=== PATIENT | male | born 1965 | race Caucasian/White ===

== ENCOUNTER 2020-12-29 22:51 | Observation (INO) ==
--- NOTE | 2020-12-29 23:27 | ERNOTE ---
Medical Problem HPI - Narrative Date of Service: 12/29/20 - General Chief Complaint: General Assessment Time Seen by Provider: 12/29/20 23:24 Source: patient Exam Limitations: no limitations - Immun/Allergies/Home Medications Immunizations: IMMUNIZATION HX Immunizations Up to Date Yes Immunizations Comment Covid (2) History of Influenza Vaccine Yes Hx Pneumococcal Vaccination No Allergies/Adverse Reactions: Allergies azithromycin Allergy (Verified 12/29/20 23:14) rash Penicillins Allergy (Verified 12/29/20 23:14) swelling/swollen throat diazepam [From Valium] Adverse Reaction (Verified 12/29/20 23:14) "one edge" Home Medications: HOME MEDICATIONS cholecalciferol (vitamin D3) 50 mcg (2,000 unit) capsule 2,000 unit PO DAILY 03/19/18 [Last Taken 06/15/18] Triamcinolone Acetonide 1 applic TOPICAL BID PRN 06/17/18 [Last Taken Unknown] cetirizine 10 mg tablet 10 mg PO DAILY PRN #90 tab 08/03/18 [Last Taken Unknown] gabapentin 300 mg capsule 300 mg PO TID #90 cap 08/03/18 [Last Taken Unknown] ropinirole 4 mg tablet 4 mg PO HS #90 tab 08/03/18 [Last Taken Unknown] tizanidine 4 mg tablet 12 mg PO HS #90 tab 08/03/18 [Last Taken Unknown] furosemide 40 mg tablet 80 mg PO DAILY tab 09/07/18 [Last Taken Unknown] Erythromycin Base [Erythromycin Ophthalmic Ointment] 1 appl OP QID #1 tube 10/28/20 [Last Taken Unknown] Lisinopril [Prinivil] 40 mg PO DAILY 12/29/20 [Last Taken Unknown] - History of Present History Narrative: Patient comes to the ER because he accidentally took his 's medication tonight. He called here, was directed to poison control and poison control sent him in because his 's medication includes 20 mg of glipizide but this patient is not diabetic. He was directed here for additional monitoring. He states he feels fine. Review of Systems - Review of Systems Constitutional: Present: no symptoms reported ENT: Present: no symptoms reported Respiratory: Present: no symptoms reported Cardiology: Present: no symptoms reported Gastrointestinal/Abdominal: Present: no symptoms reported Musculoskeletal: Present: no symptoms reported Skin: Present: no symptoms reported Medical History (Last Reviewed 12/29/20 @ 23:26 by Kelley Anand MD) COVID-19 vaccine series completed (Acute) Meralgia paresthetica of left side (Chronic) Pulmonary hypertension (Chronic) Chest pain (Acute) GI bleeding (Resolved) Left sided abdominal pain (Acute) Hearing loss (Chronic) Lymphedema of lower extremity (Chronic) Restless leg (Chronic) Lower extremity edema (Chronic) Right leg pain (Chronic) Mass of right knee (Chronic) behind knee Hypertension (Chronic) Lives with spouse Cellulitis Congenital solitary kidney Constipation Diarrhea Dyspnea Hypertension Leg pain Lymphedema Morbid obesity Neoplasm of uncertain behavior of skin Numbness in feet TRAVON (obstructive sleep apnea) CPAP Palpitations Varicose veins of both legs with edema Surgical History: Surgical History (Last Reviewed 12/29/20 @ 23:26 by Kelley Anand MD) H/O tooth extraction Onset Date: Unknown History of colonoscopy Onset Date: 06/17/18 06/17/18 [place]-tubulovillous adenoma. Recheck 3 yrs.; 06/23/18 at the [facility] History of varicose vein ligation and stripping Onset Date: Unknown left leg-greater vein. Family History: Family History (Last Reviewed 12/29/20 @ 23:26 by Kelley Anand MD) Mother , age 53-DM DMII (diabetes mellitus, type 2) Father , age 50's-throat cancer Cancer throat Social History: (Last Reviewed 12/29/20 @ 23:26 by Kelley Anand MD) Social History: Marital status: lives independently: Yes household members: spouse number of children: 1 current occupational status: disabled Highest level of school completed/degree received: Associate degree: occupat Service: Yes branch: [employer] Tobacco: Smoking Status: Never smoker Alcohol: alcohol intake: never Substance Use: substance use type: does not use Dietary Habits: caffeine: Yes caffeine comment: current, some days Type: carbonated beverages Exercise: Physical activity type: none Personal Safety: victim of physical abuse: No victim of emotional abuse: No Physical Exam - Physical Exam General Appearance: Present: wd/wn - morbidly obese, alert Head Exam: Present: normal inspection Eye Exam: Normal inspection: bilateral Ears, Nose, Throat: Present: normal ENT inspection Neck: Present: normal inspection, supple Respiratory: Present: no respiratory distress, lungs clear Cardiovascular/Chest: Present: regular rate, rhythm Gastrointestinal/Abdominal: Present: normal bowel sounds, soft Extremity Exam: Present: normal inspection Neurological Exam: Present: alert Skin Exam: Present: normal color Progress - Results and Orders Patient's Lab Results:: I have reviewed the patient's lab results. Results and Orders: Laboratory Tests 12/29/20 12/29/20 12/29/20 23:30 23:50 23:50 WBC 7.6 Hgb 15.7 Hct 48.2 Plt Count 234 Sodium 140 Potassium 4.1 Chloride 103 BUN 21 Creatinine 1.29 Random Glucose 67 L Calcium Adj for Albumin 8.6 Total Bilirubin 1.3 H AST 30 ALT 37 Total Protein 7.4 Albumin 4.0 Urine Protein Negative Urine Glucose (UA) Negative Urine Ketones Negative Urine Blood Negative Urine Nitrate Negative Urine Bilirubin Negative Urine Urobilinogen Normal Ur Leukocyte Esterase Negative Urine RBC None seen Urine WBC None seen Urine Culture Comments No culture indicated Laboratory Tests 12/29/20 23:50 Hemoglobin A1c 5.9 H - Vital Signs Patient's Vital Signs:: I have reviewed the patient's vital signs. Vital Signs: Vital Signs 12/29/20 22:52 Temperature 37.1 C Pulse Rate 66 Respiratory Rate 20 Blood Pressure 181/86 H O2 Sat by Pulse Oximetry 98 - EKG EKG #1 EKG: NSR, RBBB, other - There is presence of from right bundle branch block, incomplete, left anterior fascicular block. There are Q waves present in aVR, V1. These are new since patient's previous EKG from 2018. Nothing acute however. I would recommend following up on these EKG changes as an outpatient - Progress/Reassessment Chief Complaint: General Assessment Progress:: Unchanged Progress Note-Subjective: 12/30/20 00:41 This nondiabetic patient ingested 20 mg of glipizide accidentally. Poison control recommends 24-hour monitoring. He is not experiencing any symptoms except for a mild headache upon arrival. He is given food and drink upon arrival. Presenting blood sugar is within normal limits. Throughout his course of stay here in the ED continued to be within normal limits. He does have some new findings on his EKG when compared to 2018 Which are not associated with his glipizide ingestion. Since he is not having any symptoms, I would recommend outpatient follow-up with cardiology to evaluate morbid obesity, hypertension associated with EKG findings of incomplete right bundle branch block, left anterior fascicular block and Q waves which could represent an old [place]. I do believe he would benefit from cardiology evaluation due to EKG abnormalities although this does not need to be done while here under monitoring for the glipizide ingestion. Departure Clinical Impression: Drug ingestion, accidental, Abnormal finding on EKG - Departure Disposition: Still a patient Condition: Good Referrals: Nisa Kulkarni, [Primary Care Provider] -
[2020-12-29 23:48] LABS: Urine Bilirubin Negative (NEGATIVE); Urine Blood Negative /ul (NEGATIVE); Urine Ketone Negative (NEGATIVE); Urine Nitrite Negative (NEGATIVE); Urine Protein Negative (NEGATIVE); Urine Specific Gravity <=1.005 SP.GR. (1.005-1.030); Urine Urobilinogen Normal (NORMAL)
[2020-12-29 23:55] LABS: Hematocrit 48.2 % (42.0-52.0); Hemoglobin 15.7 gm/dL (13.5-18.0); Mean Cell Volume 91.8 fl (78-100); Mean Corpuscular Hemoglobin 29.9 pg (27-31); Mean Corpuscular Hgb Conc 32.6 g/dl (32-36); Mean Platelet Volume 11.7 fl (8-11.3); Neutrophil # 3.6 K/mm3 (1.3-6.0); Neutrophil % 47.9 % (42-75.0); Platelet Count 234 K/mm3 (150-450); Red Blood Count 5.25 M/mm3 (4.7-6.0); Red Cell Distribution Width 14.6 % (11.5-14.0); White Blood Count 7.6 K/mm3 (4.0-10.5)
[2020-12-30] LABS: Urine Appearance Clear (CLEAR); Urine Bacteria None Seen; Urine Color Yellow; Urine RBC None Seen /hpf (0-5); Urine WBC None Seen /hpf (0-5)
[2020-12-30 00:22] LABS: Anion Gap 20.1 mmol/L (6.8-13.8); Bilirubin, Total 1.3 mg/dL (0.0-1.1); Potassium 4.1 mmol/L (3.4-4.6); Total Protein 7.4 gm/dL (6.2-8.2)
[2020-12-30 00:28] LABS: BUN/Creatinine Ratio 16.3 (9.0-21.6); Ca. Corrected For Albumin 8.6 mg/dL (8.4-10.2); Calcium * 8.9 mg/dL (7.9-10.9)
[2020-12-30 00:42] LABS: Hemoglobin A1C 5.9 % (3.80-5.60)
[2020-12-30] MEDS ORDERED: DEXTROSE 50%-WATER 50 ML SYRG IV ONE (01:09)
[2020-12-30] MEDS ORDERED: rOPINIRole HCL 1 MG TABLET PO ONE (03:00)
[2020-12-30] MEDS ORDERED: DEXTROSE 50%-WATER 50 ML SYRG ONE (04:37)
[2020-12-30] MEDS ORDERED: DEXTROSE 50%-WATER 50 ML SYRG IV STA (04:40)
[2020-12-30] MEDS ORDERED: DEXTROSE 4 GM/TAB BTL PO STA ×2 (05:40→06:33)
[2020-12-30] MEDS ORDERED: DEXTROSE 4 GM/TAB BTL ONE (05:43)
[2020-12-30] MEDS ORDERED: FUROSEMIDE 40 MG TABLET PO SCH (09:00)
[2020-12-30] MEDS ORDERED: GABAPENTIN 300 MG CAPSULE PO SCH ×3 (09:00→21:00)
[2020-12-30] MEDS ORDERED: FUROSEMIDE 80 MG TABLET PO SCH (09:00)
[2020-12-30] MEDS ORDERED: LISINOPRIL 40 MG TABLET PO SCH (09:00)
[2020-12-30] MEDS ORDERED: LISINOPRIL 10 MG TABLET PO SCH (09:00)
--- NOTE | 2020-12-30 18:25 | HPDIS ---
Chief Complaint - Chief Complaint Date of Service: 12/30/20 Time of Service: 18:12 Chief Complaint: Hypoglycemia History of Present Illness: 55-year-old male with history of hypertension, sleep apnea, morbid obesity, neuropathy in his feet, restless leg syndrome presented to the ER after accidentally ingesting his 's glipizide. He was found to hypoglycemic and was diaphoretic. Sugar in the ER was 67. Patient was transferred to the floor for 24-hour monitoring of his blood sugars recommendation of poison control. Upon the floor his sugars were checked every hour it was administered an amp D5 once as well as orange juice and glucose tablets. His sugars stabilized around 8 this morning and has been within normal limits since. He was seen this morning and was sleeping comfortably with CPAP. He had no concerns at that time. His vital signs are stable and he felt well. Reexamination this evening shows his sugars have been within normal limits and has not had any glucose administered aside from his regular meals. Patient is fine to go home and its roughly 20 hours post ingestion and is with been without complication for last 10 hours. I think this is appropriate we will likely discharge him later this evening. Medical History (Last Reviewed 12/30/20 @ 02:07 by Poonam Noel RN) COVID-19 vaccine series completed (Acute) Meralgia paresthetica of left side (Chronic) Pulmonary hypertension (Chronic) Chest pain (Acute) GI bleeding (Resolved) Left sided abdominal pain (Acute) Hearing loss (Chronic) Lymphedema of lower extremity (Chronic) Restless leg (Chronic) Lower extremity edema (Chronic) Right leg pain (Chronic) Mass of right knee (Chronic) behind knee Hypertension (Chronic) Lives with spouse Cellulitis Congenital solitary kidney Constipation Diarrhea Dyspnea Hypertension Leg pain Lymphedema Morbid obesity Neoplasm of uncertain behavior of skin Numbness in feet TRAVON (obstructive sleep apnea) CPAP Palpitations Varicose veins of both legs with edema Surgical History: Surgical History (Last Reviewed 12/30/20 @ 02:07 by Poonam Noel RN) H/O tooth extraction Onset Date: Unknown History of colonoscopy Onset Date: 06/17/18 06/17/18 [place]-tubulovillous adenoma. Recheck 3 yrs.; 06/23/18 at the [facility] History of varicose vein ligation and stripping Onset Date: Unknown left leg-greater vein. Family History: Family History (Last Reviewed 12/30/20 @ 02:07 by Poonam Noel RN) Mother , age 53-DM DMII (diabetes mellitus, type 2) Father , age 50's-throat cancer Cancer throat Social History: (Last Updated 12/30/20 @ 02:08 by Poonam Noel RN) Social History: Marital status: lives independently: Yes household members: spouse number of children: 4 number of grandchildren: 11 current occupational status: disabled Highest level of school completed/degree received: Associate degree: occupat Service: Yes branch: [employer] Tobacco: Smoking Status: Never smoker Alcohol: alcohol intake: never Substance Use: substance use type: does not use Dietary Habits: caffeine: Yes caffeine comment: current, some days Type: carbonated beverages Exercise: Physical activity type: none Personal Safety: victim of physical abuse: No victim of emotional abuse: No Review Of Systems (GEN) - Review of Systems Generalized/Overall Review: Present: No Symptoms Reported EENTM: Present: No Symptoms Reported Respiratory: Present: No Symptoms Reported Cardiac: Present: No Symptoms Reported Abdominal: Present: No Symptoms Reported Genitourinary: Present: No Symptoms Reported Musculoskeletal: Present: No Symptoms Reported Neurological: Present: No Symptoms Reported Skin: Present: No Symptoms Reported Endocrine: Present: No Symptoms Reported Additional Comments: As stated in the HPI Immunizations: IMMUNIZATION HX Immunizations Up to Date Yes Immunizations Comment Covid (2) History of Influenza Vaccine Yes Hx Pneumococcal Vaccination No Allergies/Adverse Reactions: Allergies Allergy/AdvReac Type Severity Reaction Status Date / Time azithromycin Allergy rash Verified 12/29/20 23:14 Penicillins Allergy swelling/swollen Verified 12/29/20 23:14 throat diazepam [From Valium] AdvReac "one edge" Verified 12/29/20 23:14 Home Medications: HOME MEDICATIONS Triamcinolone Acetonide 1 applic TOPICAL BID PRN 06/17/18 [Last Taken Unknown] cetirizine 10 mg tablet 10 mg PO DAILY PRN #90 tab 08/03/18 [Last Taken Unknown] gabapentin 300 mg capsule 300 mg PO TID #90 cap 08/03/18 [Last Taken 12/29/20 12:00] ropinirole 4 mg tablet 4 mg PO HS #90 tab 08/03/18 [Last Taken Unknown] tizanidine 4 mg tablet 12 mg PO HS #90 tab 08/03/18 [Last Taken Unknown] furosemide 40 mg tablet 80 mg PO DAILY tab 09/07/18 [Last Taken 12/29/20 08:00] Lisinopril [Prinivil] 40 mg PO DAILY 12/29/20 [Last Taken 12/29/20 08:00] Erythromycin Base [Erythromycin Ophthalmic Ointment] 1 appl OP QID PRN 12/30/20 [Last Taken Unknown] Exam - Exam Vital Signs: Vital Signs - Last Taken Temp 36.7 C 12/30/20 14:58 Pulse 55 L 12/30/20 14:58 Resp 19 12/30/20 14:58 BP 155/80 H 12/30/20 14:58 Pulse Ox 100 12/30/20 14:58 Constitutional: Present: Alert, Oriented x3, Morbidly obese ENT Exam: Present: hearing grossly normal Eye Exam: bilateral eye: normal inspection, EOMI Respiratory: Present: lungs clear, normal breath sounds Cardiovascular/Chest: Present: regular rate, rhythm, no murmur, other - Distant heart sounds due to body habitus Skin Exam: Present: normal color, warm/dry Appearance: Present: appropriate appearance, appropriate insight - Low hello Eye contact: Present: cooperative, good eye contact Thoughts: Present: normal thought pattern, normal mood /affect Diagnostic Studies: Abnormal Lab Results 12/29/20 12/29/20 12/29/20 Range/Units 23:50 23:50 23:50 RDW 14.6 H (11.5-14.0) % MPV 11.7 H (8-11.3) fl Monocytes % 10.3 H (0.0-9) % Carbon Dioxide 21.0 L (24-32.6) mmol/L Anion Gap 20.1 H (6.8-13.8) mmol/L Random Glucose 67 L (70-110) mg/dL Hemoglobin A1c 5.9 H (3.80-5.60) % Total Bilirubin 1.3 H (0.0-1.1) mg/dL Laboratory Results WBC 7.6 K/mm3 (4.0-10.5) 12/29/20 23:50 RBC 5.25 M/mm3 (4.7-6.0) 12/29/20 23:50 Hgb 15.7 gm/dL (13.5-18.0) 12/29/20 23:50 Hct 48.2 % (42.0-52.0) 12/29/20 23:50 MCV 91.8 fl (78-100) 12/29/20 23:50 MCH 29.9 pg (27-31) 12/29/20 23:50 MCHC 32.6 g/dl (32-36) 12/29/20 23:50 RDW 14.6 % (11.5-14.0) H 12/29/20 23:50 Plt Count 234 K/mm3 (150-450) 12/29/20 23:50 MPV 11.7 fl (8-11.3) H 12/29/20 23:50 Immature Gran % (Auto) 0.40 % (0.001-0.429) 12/29/20 23:50 Immature Gran # (Auto) 0.03 K/mm3 (0.000-0.0310) 12/29/20 23:50 Neutrophils % 47.9 % (42-75.0) 12/29/20 23:50 Lymphocytes % 38.3 % (20-51) 12/29/20 23:50 Monocytes % 10.3 % (0.0-9) H 12/29/20 23:50 Eosinophils % 2.4 % (0.0-3.0) 12/29/20 23:50 Basophils % 0.7 % (0.0-1.0) 12/29/20 23:50 Nucleated RBC % 0.0 k/mm3 (0-1) 12/29/20 23:50 Neutrophils # 3.6 K/mm3 (1.3-6.0) 12/29/20 23:50 Lymphocytes # 2.89 k/mm3 (1.5-3.5) 12/29/20 23:50 Monocytes # 0.8 k/mm3 (0.0-1.0) 12/29/20 23:50 Eosinophils # 0.2 k/mm3 (0.0-0.7) 12/29/20 23:50 Absolute Basophils 0.1 k/mm3 (0.0-0.1) 12/29/20 23:50 Sodium 140 mmol/L (132-142) 12/29/20 23:50 Plasma Sodium 139 mmol/L (130-142) 12/29/20 23:50 Potassium 4.1 mmol/L (3.4-4.6) 12/29/20 23:50 Chloride 103 mmol/L (97-106) 12/29/20 23:50 Carbon Dioxide 21.0 mmol/L (24-32.6) L 12/29/20 23:50 Anion Gap 20.1 mmol/L (6.8-13.8) H 12/29/20 23:50 BUN 21 mg/dL (6-23) 12/29/20 23:50 Creatinine 1.29 mg/dL (0.4-1.4) 12/29/20 23:50 Est GFR (Non-Af Amer) 61 mL/min (60-130) D 12/29/20 23:50 BUN/Creatinine Ratio 16.3 (9.0-21.6) 12/29/20 23:50 Random Glucose 67 mg/dL (70-110) L 12/29/20 23:50 Mean Blood Glucose 123 mg/dL 12/29/20 23:50 Hemoglobin A1c 5.9 % (3.80-5.60) H 12/29/20 23:50 Calcium 8.9 mg/dL (7.9-10.9) 12/29/20 23:50 Calcium Adj for Albumin 8.6 mg/dL (8.4-10.2) 12/29/20 23:50 Total Bilirubin 1.3 mg/dL (0.0-1.1) H 12/29/20 23:50 AST 30 U/L (0-48) 12/29/20 23:50 ALT 37 U/L (19-67) 12/29/20 23:50 Alkaline Phosphatase 76 U/L (50-170) 12/29/20 23:50 Total Protein 7.4 gm/dL (6.2-8.2) 12/29/20 23:50 Albumin 4.0 gm/dl (3.4-5.0) 12/29/20 23:50 Urine Color Yellow 12/29/20 23:30 Urine Appearance Clear (CLEAR) 12/29/20 23:30 Urine pH 6.0 pH (5.0-7.0) 12/29/20 23:30 Ur Specific [place] <=1.005 SP.GR. (1.005-1.030) 12/29/20 23:30 Urine Protein Negative mg/dL (NEGATIVE) 12/29/20: Urine Glucose (UA) Negative mg/dL (NEGATIVE) 12/29/20: Urine Ketones Negative mg/dL (NEGATIVE) 12/29/20 Urine Blood Negative /ul (NEGATIVE) 12/29/20 Urine Nitrate Negative (NEGATIVE) 12/29/20: Urine Bilirubin Negative mg/dl (NEGATIVE) 12/29/20: Urine Urobilinogen Normal EU/dl (NORMAL) 12/29/20 Ur Leukocyte Esterase Negative /ul (NEGATIVE) 12/29/20 Urine RBC None seen /hpf (0-5) 12/29/20 Urine WBC None seen /hpf (0-5) 12/29/20 Ur Epithelial Cells 0-5 /hpf (0-5) 12/29/20 Urine Bacteria None seen (NONE) 12/29/20 Urine Culture Comments No culture indicated 12/29/20 SARS-CoV-2 (PCR) Not detected (NotDetected) 12/29/20 Assessment/Plan - Assessment/Plan (1) Hypoglycemia Assessment: 55-year-old male with history of hypertension, sleep apnea, morbid obesity, neuropathy in his feet, restless leg syndrome presented to the ER after accidentally ingesting his 's glipizide. He was found to hypoglycemic and was diaphoretic. Sugar in the ER was 67. Patient was transferred to the floor for 24-hour monitoring of his blood sugars recommendation of poison control. Upon the floor his sugars were checked every hour it was administered an amp D5 once as well as orange juice and glucose tablets. His sugars stabilized around 8 this morning and has been within normal limits since. He was seen this morning and was sleeping comfortably with CPAP. He had no concerns at that time. His vital signs are stable and he felt well. Reexamination this evening shows his sugars have been within normal limits and has not had any glucose administered aside from his regular meals. Patient is fine to go home and its roughly 20 hours post ingestion and is with been without complication for last 10 hours. I think this is appropriate we will likely discharge him later this evening. Problem: Acute (2) Drug ingestion, accidental Problem: Acute (3) Morbid obesity with BMI of 60.0-69.9, adult Problem: Acute (4) Obstructive Sleep Apnea-Hypopnea Syndrome Problem: Chronic (5) Hypertension Problem: Chronic Qualifiers: Hypertension type: essential hypertension Qualified Code(s): I10 - Essential (primary) hypertension (1) Hypoglycemia Problem: Acute (2) Drug ingestion, accidental Problem: Acute (3) Morbid obesity with BMI of 60.0-69.9, adult Problem: Acute (4) Obstructive Sleep Apnea-Hypopnea Syndrome Problem: Chronic (5) Hypertension Problem: Chronic Qualifiers: Hypertension type: essential hypertension Qualified Code(s): I10 - Essential (primary) hypertension Date of Discharge:: 12/30/20 Hospital Course: 55-year-old male with history of hypertension, sleep apnea, morbid obesity, neuropathy in his feet, restless leg syndrome presented to the ER after accidentally ingesting his 's glipizide. He was found to hypoglycemic and was diaphoretic. Sugar in the ER was 67. Patient was transferred to the floor for 24-hour monitoring of his blood sugars recommendation of poison control. Upon the floor his sugars were checked every hour it was administered an amp D5 once as well as orange juice and glucose tablets. His sugars stabilized around 8 this morning and has been within normal limits since. He was seen this morning and was sleeping comfortably with CPAP. He had no concerns at that time. His vital signs are stable and he felt well. Reexamination this evening shows his sugars have been within normal limits and has not had any glucose administered aside from his regular meals. Patient is fine to go home and its roughly 20 hours post ingestion and is with been without complication for last 10 hours. I think this is appropriate and will be discharged now. No changes to his medications. He is to follow up with his PCP in 1 week. 1 hr time spent with patient today with two examinations, reviewing ER records, treatment plan, and dictating this note. Procedures Performed: none Results and Findings: Lab Pending Results 12/29/20 23:30: Urine Color Yellow, Urine Appearance Clear, Urine pH 6.0, Ur Specific [place] <=1.005, Urine Protein Negative, Urine Glucose (UA) Negative, Urine Ketones Negative, Urine Blood Negative, Urine Nitrate Negative, Urine Bilirubin Negative, Urine Urobilinogen Normal, Ur Leukocyte Esterase Negative, Urine RBC None seen, Urine WBC None seen, Ur Epithelial Cells 0-5, Urine Bacteria None seen, Urine Culture Comments No culture indicated 12/29/20 23:30: SARS-CoV-2 (PCR) Not detected 12/29/20 23:50: WBC 7.6, RBC 5.25, Hgb 15.7, Hct 48.2, MCV 91.8, MCH 29.9, MCHC 32.6, RDW 14.6 H, Plt Count 234, MPV 11.7 H, Immature Gran % (Auto) 0.40, Immature Gran # (Auto) 0.03, Neutrophils % 47.9, Lymphocytes % 38.3, Monocytes % 10.3 H, Eosinophils % 2.4, Basophils % 0.7, Nucleated RBC % 0.0, Neutrophils # 3.6, Lymphocytes # 2.89, Monocytes # 0.8, Eosinophils # 0.2, Absolute Basophils 0.1 12/29/20 23:50: Sodium 140, Plasma Sodium 139, Potassium 4.1, Chloride 103, Carbon Dioxide 21.0 L, Anion Gap 20.1 H, BUN 21, Creatinine 1.29, Est GFR (Non- Af Amer) 61 D, BUN/Creatinine Ratio 16.3, Random Glucose 67 L, Calcium 8.9, Calcium Adj for Albumin 8.6, Total Bilirubin 1.3 H, AST 30, ALT 37, Alkaline Phosphatase 76, Total Protein 7.4, Albumin 4.0 12/29/20 23:50: Mean Blood Glucose 123, Hemoglobin A1c 5.9 H Discharge Location: Home Disposition: Home self-care Condition: Good Discharge Activity: Activity as tolerated Discharge Diet: Low salt Referrals: Nisa Kulkarni DO [Primary Care Provider] - One Week Additional Patient Instructions (free text): [facility] will call you for your follow up appointment on Friday Complete Home Medications List: Complete Home Medication List: Triamcinolone Acetonide 1 applic TOPICAL BID PRN 06/17/18 cetirizine 10 mg tablet 10 mg PO DAILY PRN #90 tab 08/03/18 gabapentin 300 mg capsule 300 mg PO TID #90 cap 08/03/18 ropinirole 4 mg tablet 4 mg PO HS #90 tab 08/03/18 tizanidine 4 mg tablet 12 mg PO HS #90 tab 08/03/18 furosemide 40 mg tablet 80 mg PO DAILY tab 09/07/18 Lisinopril [Prinivil] 40 mg PO DAILY 12/29/20 Erythromycin Base [Erythromycin Ophthalmic Ointment] 1 appl OP QID PRN 12/30/20
[2020-12-30 19:44] VITALS: BP 155/86
[2020-12-30] MEDS ORDERED: tiZANidine HCL 4 MG TABLET PO SCH (21:00)
[2020-12-30] MEDS ORDERED: rOPINIRole HCL 1 MG TABLET PO SCH (21:00)
== END 2020-12-30 19:18 | disposition home or self-care (01) ==
LOC: MS 22:51 → ER 22:51 → MS 12-30 01:39
PROVIDERS: ADMIT Family Medicine; ATTEND Family Medicine